=== PATIENT | male | born 1930 | race Caucasian/White ===

== ENCOUNTER → 2017-04-15 | Outpatient (CLI) | payer MEDICARE, OTHER | END | disposition home or self-care (01) | LOC: GMAB 10:42 | PROVIDERS: ATTEND Family Medicine | DX: Z12.5 Encounter for screening for malignant neoplasm of prostate (principal); I10 Essential (primary) hypertension | CPT/HCPCS: 84443; G0103 ==

== ENCOUNTER → 2018-04-18 | Outpatient (CLI) | payer MEDICARE, OTHER | LOC: GMAE 10:37 | PROVIDERS: ATTEND Family Medicine | DX: I10 Essential (primary) hypertension (principal) ==

== ENCOUNTER → 2019-03-14 | Outpatient (CLI) | payer MEDICARE, OTHER | LOC: GMAE 16:50 | PROVIDERS: ATTEND Family Medicine | DX: R10.33 Periumbilical pain (principal) ==

== ENCOUNTER → 2020-05-23 | Outpatient (CLI) | payer MEDICARE, OTHER ==
--- NOTE | 2020-05-25 14:15 | MRI ---
EXAM DESCRIPTION: Shoulder,Left CLINICAL HISTORY: 89 years Male, SHOULDER PAIN COMPARISON: X-ray September 25, 2019. TECHNIQUE: Noncontrast multiplanar multisequence magnetic resonance imaging of the left shoulder. 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 Advanced subscapularis muscle atrophy and fatty replacement. The long head of the biceps tendon is visualized just below the intertubercular groove without thickening and heterogeneity suggesting prior biceps tenodesis chronic full-thickness retracted tear. No intra-articular portion of the long head of the biceps tendon. Massive full-thickness full width supraspinatus tendon tear at the critical zone is retracted nearly 3.8 cm from the greater tuberosity. Residual tendon stump measures up to 2.2 cm from the greater tuberosity. Abnormal supraspinatus tendon signal extends to the glenoid 5.3 cm from the greater tuberosity. Diffuse myositis of the supraspinatus indicating acute tear. Mild supraspinatus muscle atrophy and fatty degeneration. Undersurface fraying of the infraspinatus involves 50% of the insertional articular surface. No significant muscle atrophy or fatty replacement. Mild generalized glenohumeral joint articular surface thinning with subchondral sclerosis or cyst formation. Circumferential glenoid labral degeneration. No high-grade chondral labral separation. Large glenohumeral joint effusion extending into the subacromial/subdeltoid bursal space. Severe acromioclavicular joint osteoarthritis with undersurface spurring effacing the rotator cuff outlet. Superior humeral translation with humeral acromial distance measuring 0.45 cm. IMPRESSION: Acute massive full-thickness full width retracted supraspinatus tendon tear. Chronic full-thickness retracted subscapularis tendon tear. Undersurface fraying/tearing of the infraspinatus tendon insertion. Large glenohumeral joint effusion. Severe AC joint osteoarthritis. Additional findings described above. Electronically signed by: Fernando Hawk MD 05/25/2020 2:13 PM CDT
== END ==
LOC: MRI 13:00
PROVIDERS: ATTEND Family Medicine
DX: M75.102 Unspecified rotator cuff tear or rupture of left shoulder, not specified as traumatic (principal); M19.012 Primary osteoarthritis, left shoulder; M25.412 Effusion, left shoulder